=== PATIENT | male | born 1940 | race Caucasian/White ===

== ENCOUNTER → 2016-06-20 | Outpatient (CLI) | payer MEDICARE, BC ==
--- NOTE | 2016-06-20 16:47 | RADRPT ---
PROCEDURE: CT Brain without contrast. CLINICAL INDICATION: Headaches. Pain right parietal area. TECHNIQUE: A CT of the brain was performed on a multidetector CT scanner utilizing axial sections from the skull base through the vertex without contrast. Images were reviewed on a high-resolution [employer] workstation. Exam CTDI = 44.4 mGy and the DLP = 630.20 mGy-cm. One or more of the following dose reduction techniques were used: Automated exposure control Adjustment of the mA and/or kV according to patient size. Use of iterative reconstruction technique. COMPARISON: None available FINDINGS: Mild diffuse cerebral and cerebellar atrophy is present. There is proportionate dilatation of the v entricular system and sulci in a symmetric fashion. There is prominence of the extraaxial spaces sec ondary to atrophy. There is no evidence of intracranial hemorrhage, mass effect or midline shift. Th ere is cavum septum pellucidum at vergae. No abnormal intra-axial or extra-axial fluid collections a re seen. The density of the brain is normal and the hobbs/white matter differentiation is well prese rved. Minimal diffuse deep white matter microangiopathic ischemic change is seen. The osseous st ructures are unremarkable. Paranasal sinuses are clear. Vascular calcifications are identified. IMPRESSION: 1. No intracranial hemorrhage, mass effect or midline shift. 2. Mild generalized atrophy. Minimal microangiopathic ischemic change. 3. Intracranial atherosclerosis. RPTAT: BB .Rae Sanches MD, MD Date Time Electronically viewed and signed by .Rae Sanches MD, MD on 06/20/2016 16:46 .O/
== END | disposition home or self-care (01) ==
LOC: C/S 16:00
PROVIDERS: ATTEND Internal Medicine
DX: R51 Headache (principal); G31.9 Degenerative disease of nervous system, unspecified; I67.2 Cerebral atherosclerosis
CPT/HCPCS: 70450

== ENCOUNTER → 2016-06-30 | Outpatient (CLI) | payer MEDICARE, BC ==
--- NOTE | 2016-06-30 16:08 | RADRPT ---
PROCEDURE: CT Lumbar Spine. CLINICAL INDICATION: Low back pain TECHNIQUE: Continuous axial CT images were obtained. Sagittal and coronal reformations were creat ed from the raw axial data. The images were reviewed on a PACS workstation. The calculated radiatio n dose measures 580 mGy centimeters. The CTDI measures 21 mGy COMPARISON: X-ray 03/20/2014 FINDINGS: There is a thoracolumbar dextroscoliosis. There is roger and pedicle screw fixation from the thoracic spine through the L1 level. There is varun screw lucency on the left at the L1 level measuring 2 mm . There is minimal periapical screw lucency on the right as well. Vertebral body heights are preser marialuisa. There is a mild retrolisthesis at L3-L4, 2 mm. There is mild anterolisthesis at L4-L5, 4 mm. There is severe disk space narrowing from L2-L3 through L4-5, and L5-S1. There is vacuum disk flannery ge through the lower lumbar spine. No focal lytic or sclerotic lesions are identified. T12-L1: There is a minimal disk osteophyte complex. There is mild bilateral facet hypertrophy. The re is no bony central canal stenosis. There is minimal left foraminal stenosis. There is no right foraminal stenosis.. L1-L2: There is a moderate disk osteophyte complex asymmetric to the left, 6 mm. There is mild bila teral facet hypertrophy. There is mild central canal stenosis, and left lateral recess narrowing. There is mild left foraminal stenosis. There is no right bony foraminal stenosis.. L2-L3: There is mild to moderate disk osteophyte complex, 3 mm. There is mild to moderate bilateral facet hypertrophy. There is minimal bony central canal stenosis. There is minimal bilateral elbert inal stenosis.. L3-L4: There is a mild retrolisthesis. There is mild to moderate disk osteophyte complex, 4 mm. Th ere is mild to moderate bilateral facet hypertrophy. There is mild central canal stenosis. There i s mild left and moderate to severe right foraminal stenosis.. L4-L5: There is grade 1 anterolisthesis. There is a minimal diffuse disk bulge. There is moderate bilateral facet hypertrophy. There is mild to moderate central canal stenosis. There is moderate t o severe bilateral neural foraminal stenosis. L5-S1: There is mild to moderate disk osteophyte complex, 4 mm. There is moderate bilateral facet h ypertrophy. There is no bony central canal stenosis. There is moderate left and moderate to severe right neural foraminal stenosis.. There is no abnormal paravertebral soft tissue mass. There is prominent aortic and branch vessel ca lcification. IMPRESSION: 1. Thoracolumbar dextroscoliosis. 2. Status post roger and pedicle screw fixation from the thoracic spine through the L1 vertebral body . There is varun screw lucency at the lower L1 level, consistent with hardware loosening, more promi nent on the left, measuring up to 2 mm. 3. Mild grade 1 retrolisthesis at L3-L4 and anterolisthesis at L4-5, measuring 2 mm and 4 mm respec tively. 4. Moderate disk osteophyte complex at L1-L2, and mild to moderate disk osteophyte complexes at L2- L3, L3-L4, and L5-S1. 5. Facet hypertrophy, mild to moderate through the mid lumbar spine and moderate through the lower lumbar spine. 6. Resulting mild central canal stenosis at L1-L2 and L3-L4, and mild to moderate central canal scottie nosis at L4-5. 7. Neural foraminal stenosis, moderate and moderate to severe as noted from L3-L4 through L5-S1, mo re prominent on the right. RPTAT: HBST . .Leodan Montana MD, Date Time Electronically viewed and signed by .eLodan Montana MD, on 06/30/2016 16:07 .T/
== END | disposition home or self-care (01) ==
LOC: C/S 12:57
PROVIDERS: ATTEND Internal Medicine
DX: M54.5 Low back pain (principal)
CPT/HCPCS: 72131